=== PATIENT | male | born 1995 | race American Indian/Alaskan Native ===

== ENCOUNTER 2020-11-03 12:51 | Emergency (ER) | payer SELFPAY ==
[2020-11-03 13:16] VITALS: BP 128/53
--- NOTE | 2020-11-03 14:21 | Emergency Department Report ---
Chief Complaint: Laceration/Recheck/Suture Stated Complaint: STITCHES REMOVAL - HPI History of Present Illness: 25-year-old -[place] male presents to the emergency room stating he is here to get his stitches removed that was placed in his left arm at [facility] on October 21. Patient denies any discharge no fever no chills no pain. - Exam Vital Signs: Vital Signs 11/03/20 13:14 Temperature 98.0 F Pulse Rate 68 Respiratory 18 Rate Blood Pressure 128/53 O2 Sat by Pulse 98 Oximetry Physical Exam: Alert and oriented x3 no acute distress nontoxic in appearance Ambulatory without difficulties Sutures are placed in the left forearm MSE screening note: Focused history and physical exam performed. Due to findings the following was ordered: 25-year-old -[place] male presents to the emergency room stating he is here to get his stitches removed that was placed in his left arm at [place] on October 21. Patient denies any discharge no fever no chills no pain. ED Disposition for MSE Condition: Stable
== END 2020-11-03 14:29 | disposition left against medical advice (07) ==
LOC: ED 12:51
DX: S61.412A Laceration without foreign body of left hand, initial encounter (principal); Z48.02 Encounter for removal of sutures; X58.XXXA Exposure to other specified factors, initial encounter; Y93.89 Activity, other specified; Y92.89 Other specified places as the place of occurrence of the external cause; Y99.8 Other external cause status
CPT/HCPCS: 99282